=== PATIENT | female | born 1965 | race Caucasian/White ===

== ENCOUNTER 2017-07-06 16:34 | Observation (INO) | payer BC ==
--- NOTE | 2017-07-06 16:53 | EDPHY ---
H & P Stated Complaint: Generalized abd pain/bloating today;[place] Source: Patient Exam Limitations: No limitations - Personal History LMP (Females 10-55): Post Menopausal Current Tetanus Diphtheria and Acellular Pertussis (TDAP): Yes - Medical/Surgical History Other PMH: thyroid - Social History Smoking Status: Current every day smoker Time Seen by Provider: 07/06/17 16:52 HPI/ROS: HPI: This is a 52-year-old female who presents Chief Complaint: Generalized abd pain/bloating today;[place] Location: Generalized abdomen Quality: Cramping Duration: 1-2 days Signs and Symptoms: no fever, + nausea, + vomiting, no hematemesis, no blood in stool, + abdominal bloating, no diarrhea, no back pain, no urinary symptoms, no indigestion, no chest pain, no shortness of breath Timing: Intermittent, worsening Severity: Moderate Context: Patient is originally from [place] and arrived here to to visit her childhood friend on Tuesday. She reports that her last bowel movement was on the day that she flew. She has been eating foods that she normally does not eat but has been moving around more than normal. She reports over the last 1-2 days she has noticed increased abdominal bloating accompanied by nausea and abdominal cramping. Patient has no prior history of abdominal surgeries. Denies fever/chills/urinary symptoms/abdominal pain. Prior to her arrival to the ER she went to the pharmacy and they gave her a bottle Mag citrate to drink. After consuming the entire drink she felt nauseous and vomited up denies nausea or vomiting at the present moment. She reports that she is not passing flatus. She has had no difficulty eating or drinking. Modifying Factors: Robert lira Comment: ROS: see HPI Constitutional: No fever, no chills, no weight loss Eyes: No blurred vision Respiratory: No shortness of breath, no cough Cardiovascular: No chest pain, no palpitations Gastrointestinal: +nausea,+ vomiting, no diarrhea, no hematemesis, no blood in stool Genitourinary: No dysuria, no blood in urine Extremities: No myalgias, no edema Neurologic: No weakness, no numbness Skin: No rashes, no petechiae Hematologic: No bruising, no bleeding MEDICAL/SURGICAL/SOCIAL HISTORY: Medical history: Thyroid Surgical history: Denies Social history: Here visiting from [place] state CONSTITUTIONAL: Extremely well-appearing middle-aged white female, nontoxic in appearance, awake and alert, no obvious distress HEENT: Atraumatic and normocephalic, PERRL, EOMI. Tympanic membranes clear. Oropharynx clear, no exudate and moist pink mucosa. Airway patent. No lymphadenopathy. No meningismus. Cardiovascular: Normal S1/S2, regular rate, regular rhythm, without murmur rub or gallop. PULMONARY/CHEST: Symmetrical and nontender. Clear to auscultation bilaterally. Good air movement. No accessory muscle usage. ABDOMEN: Soft, mildly distended, non focal tenderness no rebound, no guarding, no peritoneal signs, no masses or organomegaly. No CVAT. Hyperactive bowel sounds heard x4 quadrants. EXTREMITIES: 2/2 pulses, strength 5/5, no deformities, no clubbing, no cyanosis or edema. NEUROLOGICAL: no focal neuro deficits. GCS 15. SKIN: Warm and dry, no erythema. no rash. Good capillary refill. (Evy Morgan) Constitutional: Initial Vital Signs Heart Rate 86 07/06/17 16:36 Respiratory Rate 18 07/06/17 16:36 Blood Pressure 155/85 H 07/06/17 16:36 O2 Sat (%) 96 07/06/17 16:36 O2 Delivery Mode Room Air Allergies/Adverse Reactions: No Known Allergies Allergy (Unverified 07/06/17 16:40) Home Medications: Medication Instructions Recorded ALPRAZolam [Xanax 1 MG (*)] 1 mg PO TID 07/06/17 Herbals/Supplements -Info Only 1 ea PO DAILY 07/06/17 Levothyroxine Sodium [Levoxyl] 150 mcg PO DAILY06 07/06/17 Multivitamins [Multivitamin (*)] 1 each PO DAILY 07/06/17 Medical Decision Making - Diagnostics Imaging Results: Imaging Impressions Abdomen X-Ray 07/06/17 17:08 Impression: Abnormal small bowel, with edematous loops in the left abdomen and either Pepto-Bismol or psammomatous calcifications in the pelvis. Recommend CT of the abdomen and pelvis with contrast for further evaluation. Results discussed with Evy Morgan at 5:[address] 07/06/17 17:35 Impression: 1. Suspicious of appendicitis. 2. Mild dilatation of duodenum and jejunum. I telephoned results to Evy Morgan PA-C and 1923 hours. ED Course/Re-evaluation: 1944: I did see and evaluate this patient. She does have right lower quadrant tenderness on exam. Given her white count right lower quadrant tenderness nausea ongoing abdominal pain her CT scan does show acute appendicitis. Surgery will be consult. I will order her Invanz, Dilaudid and Zofran at this time. NPO. (Samir Rainey) Labs, abdominal x-ray series, IV fluids, IV medications ordered Patient is a for from lot and nontoxic in appearance. She has not had a bowel movement in several days and suspect constipation. [address] Wheatley who advised abdominal x-ray shows edematous looking bowels as well as a calcification his recommendation is to proceed with CT abdomen and pelvis scan Urinalysis shows blood but no signs of infection 1831 Labs reviewed and showed mild leukocytosis of 12 K otherwise no signs of a YOLANDA, electrolyte imbalance, elevated LFTs, anemia, pancreatitis 1929: Called by Dr. Brownlee who advised that CT abdomen and pelvis scan shows minimal left lower quadrant small bowel dilatation as well as enhancing wall in 8-[address] Rainey reassessed patient and now having RLQ moderate to severe pain and nausea IV Invanz, another 1 liter NS, IV Dilaudid ordered Will consult surgery, Dr. Solis, who kindly agrees to consult on patient and provide further care (Evy Morgan) Differential Diagnosis: Abdominal pain including but not limited to appendicitis, cholecystitis, gastritis and urinary tract infection. (Evy Morgan) - Data Points Laboratory Results: Laboratory Results 07/06/17 17:45 07/06/17 17:45 07/06/17 07/06/17 07/06/17 17:45 17:45 16:45 WBC 12.53 10^3/uL H 10^3/uL (3.80-9.50) RBC 4.72 10^6/uL 10^6/uL (4.18-5.33) Hgb 14.5 g/dL g/dL (12.6-16.3) Hct 41.3 % % (38.0-47.0) MCV 87.5 fL fL (81.5-99.8) MCH 30.7 pg pg (27.9-34.1) MCHC 35.1 g/dL g/dL (32.4-36.7) RDW 12.9 % % (11.5-15.2) Plt Count 279 10^3/uL 10^3/uL (150-400) MPV 9.4 fL fL (8.7-11.7) Neut % (Auto) 76.8 % H % (39.3-74.2) Lymph % (Auto) 13.7 % L % (15.0-45.0) [place] % (Auto) 6.9 % % (4.5-13.0) Eos % (Auto) 1.8 % % (0.6-7.6) Baso % (Auto) 0.6 % % (0.3-1.7) Nucleat RBC Rel Count 0.0 % % (0.0-0.2) Absolute Neuts (auto) 9.61 10^3/uL H 10^3/uL (1.70-6.50) Absolute Lymphs (auto) 1.72 10^3/uL 10^3/uL (1.00-3.00) Absolute Monos (auto) 0.87 10^3/uL H 10^3/uL (0.30-0.80) Absolute Eos (auto) 0.23 10^3/uL 10^3/uL (0.03-0.40) Absolute Basos (auto) 0.07 10^3/uL 10^3/uL (0.02-0.10) Absolute Nucleated RBC 0.00 10^3/uL 10^3/uL (0-0.01) Immature Gran % 0.2 % % (0.0-1.1) Immature Gran # 0.03 10^3/uL 10^3/uL (0.00-0.10) Sodium 143 mEq/L mEq/L (134-144) Potassium 3.7 mEq/L mEq/L (3.5-5.2) Chloride 102 mEq/L mEq/L (97-110) Carbon Dioxide 27 mEq/l mEq/l (22-31) Anion Gap 14 mEq/L mEq/L (8-16) BUN 14 mg/dL mg/dL (7-23) Creatinine 0.8 mg/dL mg/dL (0.6-1.0) Estimated GFR > 60 Glucose 88 mg/dL mg/dL (70-100) Calcium 10.0 mg/dL mg/dL (8.5-10.4) Total Bilirubin 0.5 mg/dL mg/dL (0.1-1.4) Conjugated Bilirubin 0.1 mg/dL mg/dL (0.0-0.5) Unconjugated Bilirubin 0.4 mg/dL mg/dL (0.0-1.1) AST 38 IU/L IU/L (14-46) ALT 88 IU/L H IU/L (9-52) Alkaline Phosphatase 112 IU/L IU/L (38-126) Total Protein 7.8 g/dL g/dL (6.3-8.2) Albumin 4.6 g/dL g/dL (3.5-5.0) Lipase 120 IU/L IU/L (23-300) Urine Color YELLOW Urine Appearance CLEAR Urine pH 5.0 (5.0-7.5) Ur Specific [place] 1.020 (1.002-1.030) Urine Protein NEGATIVE (NEGATIVE) Urine Ketones NEGATIVE (NEGATIVE) Urine Blood 1+ H (NEGATIVE) Urine Nitrate NEGATIVE (NEGATIVE) Urine Bilirubin NEGATIVE (NEGATIVE) Urine Urobilinogen NEGATIVE EU EU (0.2-1.0) Ur Leukocyte Esterase NEGATIVE (NEGATIVE) Urine RBC 25-50 /hpf H /hpf (0-3) Urine WBC 3-5 /hpf H /hpf (0-3) Ur Epithelial Cells NONE SEEN /lpf /lpf (NONE-1+) Urine Glucose NEGATIVE (NEGATIVE) Medications Given: Discontinued Medications Hydromorphone HCl (Dilaudid) 0.5 mg IVP EDNOW ONE Stop: 07/06/17 19:46 Last Admin: 07/06/17 19:55 Dose: 0.5 mg Sodium Chloride (Ns) 1,000 mls @ 0 mls/hr IV EDNOW ONE; Wide Open PRN Reason: Protocol Stop: 07/06/17 17:09 Last Admin: 07/06/17 17:35 Dose: 1,000 mls Ertapenem 1 gm/ Sodium (Chloride) 100 mls @ 200 mls/hr IV EDNOW ONE PRN Reason: Protocol Stop: 07/06/17 20:14 Last Admin: 07/06/17 20:18 Dose: 100 mls Sodium Chloride (Ns) 1,000 mls @ 0 mls/hr IV ONCE ONE PRN Reason: Wide Open Stop: 07/06/17 19:47 Last Admin: 07/06/17 19:54 Dose: 1,000 mls Morphine Sulfate (Morphine) 6 mg IVP EDNOW ONE Stop: 07/06/17 18:32 Last Admin: 07/06/17 18:37 Dose: 6 mg Ondansetron HCl (Zofran) 4 mg IVP EDNOW ONE Stop: 07/06/17 17:09 Last Admin: 07/06/17 17:36 Dose: 4 mg Departure - Departure Disposition: [facility] Inpatient Acute Clinical Impression: Appendicitis Qualifiers: Appendicitis type: acute appendicitis Acute appendicitis type: with generalized peritonitis Qualified Code(s): K35.2 - Acute appendicitis with generalized peritonitis
[2017-07-06] MEDS ORDERED: ONDANSETRON 4 MG/2 ML VIAL IVP ONE (17:08)
[2017-07-06] MEDS ORDERED: NS 1,000 ML IV ONE ×2 (17:08→19:46)
[2017-07-06 17:27] LABS: COLOR YELLOW; LEUKOCYTE ESTERASE,URINE NEGATIVE (NEGATIVE); NITRITE,URINE NEGATIVE (NEGATIVE)
[2017-07-06 17:35] LABS: RBC,URINE 25-50 /hpf (0-3)
[2017-07-06 17:50] LABS: % IMMATURE GRANULYOCYTES 0.2 % (0.0-1.1); ABSOLUTE IMMATURE GRANULOCYTES 0.03 10^3/uL (0.00-0.10); ADD DIFF? NO; ADD MORPH? NO; ADD SCAN? NO; ATYPICAL LYMPHOCYTE FLAG 0 (0-99); FRAGMENT RBC FLAG 0 (0-99); HEMATOCRIT 41.3 % (38.0-47.0); HEMOGLOBIN 14.5 g/dL (12.6-16.3); LEFT SHIFT FLG 0 (0-99); LIPEMIA HEMOLYSIS FLAG 90 (0-99); MEAN CELL HEMOGLOBIN 30.7 pg (27.9-34.1); MEAN CELL HEMOGLOBIN CONCENTR. 35.1 g/dL (32.4-36.7); MEAN CELL VOLUME 87.5 fL (81.5-99.8); MEAN PLATELET VOLUME 9.4 fL (8.7-11.7); PLATELET CLUMPS FLAG 0 (0-99); PLATELET COUNT 279 10^3/uL (150-400); RED BLOOD CELL COUNT 4.72 10^6/uL (4.18-5.33); RED CELL DISTRIBUTION WIDTH 12.9 % (11.5-15.2)
[2017-07-06 18:12] LABS: ALANINE AMINOTRANSFERASE 88 IU/L (9-52); ALBUMIN 4.6 g/dL (3.5-5.0); ALKALINE PHOSPHATASE 112 IU/L (38-126); ANION GAP 14 mEq/L (8-16); ASPARTATE AMINOTRANSFERASE 38 IU/L (14-46); BILIRUBIN,TOTAL 0.5 mg/dL (0.1-1.4); BILIRUBIN-CONJUGATED 0.1 mg/dL (0.0-0.5); BILIRUBIN-UNCONJUGATED 0.4 mg/dL (0.0-1.1); CARBON DIOXIDE 27 mEq/l (22-31); CHLORIDE 102 mEq/L (97-110); CREATININE 0.8 mg/dL (0.6-1.0); GLOMERULAR FILTRATION RATE > 60; GLUCOSE 88 mg/dL (70-100); POTASSIUM 3.7 mEq/L (3.5-5.2); SODIUM 143 mEq/L (134-144); TOTAL PROTEIN 7.8 g/dL (6.3-8.2)
[2017-07-06] MEDS ORDERED: IOPAMIDOL (ISOVUE-300) 100 ML BTL ONE (18:32)
[2017-07-06] MEDS ORDERED: HYDROmorphONE/DILAUDID 1 MG/ML INJ IVP ONE (19:45)
[2017-07-06] MEDS ORDERED: ERTAPENEM 1 GM in NS 100 ML IV ONE (19:45)
[2017-07-06] MEDS ORDERED: LORazepam 2 MG/ML INJ IVP ONE (20:38)
[2017-07-06] MEDS ORDERED: HYDROmorphONE/DILAUDID 1 MG/ML INJ IVP PRN ×2 (20:40→21:06)
[2017-07-06] MEDS ORDERED: LR 1,000 ML IV ONE (20:43)
[2017-07-06] MEDS ORDERED: BUPIVACAINE 0.25% 30 ML SDV ONE (20:44)
--- NOTE | 2017-07-06 20:51 | PDGENHP ---
History and Physical - Chief Complaint abd pain - History of Present Illness 52 y/o female with abdominal pain starting today associated with N/V. She has been mildly constipated for the past 2 days while visiting from [place] and took some Pepto Bismol and Mag Citrate to try and relieve her symptoms. She felt worse and went to urgent care and ultimately to the [facility] ED where she was seen by MARY LOU Morgan and a CT was obtained which showed acute appendicitis. Surgical consultation was requested. History Information - Allergies/Home Medication List Allergies/Adverse Reactions: No Known Allergies Allergy (Unverified 07/06/17 16:40) Home Medications: ALPRAZolam [Xanax 1 MG (*)] 1 mg PO TID 07/06/17 [Last Taken 07/06/17 08:00] Herbals/Supplements -Info Only 1 ea PO DAILY 07/06/17 [Last Taken 07/06/17] Levothyroxine Sodium [Levoxyl] 150 mcg PO DAILY06 07/06/17 [Last Taken 07/06/17] Multivitamins [Multivitamin (*)] 1 each PO DAILY 07/06/17 [Last Taken 07/06/17] I have personally reviewed and updated: family history, medical history, social history, surgical history - Past Medical History Additional medical history: anxiety, hypothyroidism - Surgical History Additional surgical history: breast augmentation/liposuction - Social History Smoking Status: Current every day smoker Alcohol Use: Occasionally Drug Use: None Additional social history: lives in [place]/here with a friend from [place]/ has a flight back home tomorrow at 12:00 Review of Systems Review of Systems: Constitutional: Reports: no symptoms EENMT: Reports: no symptoms Cardiac: Reports: no symptoms Respiratory: Reports: no symptoms Gastrointestinal: Reports: vomitting, abdominal pain, abdominal distention, constipation, nausea Genitourinary: Reports: no symptoms, other (post menopausal) Muscolosketal: Reports: no symptoms Skin: Reports: no symptoms Neurological: Reports: anxiety Hematologic/Lymphatic: Reports: no symptoms Immunologic/Allergy: Reports: no symptoms Physical Exam Physical Exam: Temp Pulse Resp BP Pulse Ox 36.9 C 76 16 113/53 L 93 07/06/17 20:00 07/06/17 20:00 07/06/17 20:00 07/06/17 20:00 07/06/17 20:00 Constitutional: uncomfortable Eyes: anicteric sclera, EOMI Cardiovascular: regular rate and rhythym Respiratory: no respiratory distress, no rales or rhonchi, clear to auscultation Gastrointestinal: normoactive bowel sounds, tenderness (diffuse lower abd tenderness to percussion/palpation/+Rovsing's/mild guarding RLQ/no mass) Genitourinary: no bladder fullness Skin: warm Neurologic: AAOx3 Psychiatric: interacting appropriately, anxious Lymph, Heme, Immunologic: no cervical LAD, no supraclavicular LAD Lab Data & Imaging Review 07/06/17 17:45 07/06/17 17:45 WBC 12.53 10^3/uL (3.80-9.50) H 07/06/17 17:45 RBC 4.72 10^6/uL (4.18-5.33) 07/06/17 17:45 Hgb 14.5 g/dL (12.6-16.3) 07/06/17 17:45 Hct 41.3 % (38.0-47.0) 07/06/17 17:45 MCV 87.5 fL (81.5-99.8) 07/06/17 17:45 MCH 30.7 pg (27.9-34.1) 07/06/17 17:45 MCHC 35.1 g/dL (32.4-36.7) 07/06/17 17:45 RDW 12.9 % (11.5-15.2) 07/06/17 17:45 Plt Count 279 10^3/uL (150-400) 07/06/17 17:45 MPV 9.4 fL (8.7-11.7) 07/06/17 17:45 Neut % (Auto) 76.8 % (39.3-74.2) H 07/06/17 17:45 Lymph % (Auto) 13.7 % (15.0-45.0) L 07/06/17 17:45 Jerome % (Auto) 6.9 % (4.5-13.0) 07/06/17 17:45 Eos % (Auto) 1.8 % (0.6-7.6) 07/06/17 17:45 Baso % (Auto) 0.6 % (0.3-1.7) 07/06/17 17:45 Nucleat RBC Rel Count 0.0 % (0.0-0.2) 07/06/17 17:45 Absolute Neuts (auto) 9.61 10^3/uL (1.70-6.50) H 07/06/17 17:45 Absolute Lymphs (auto) 1.72 10^3/uL (1.00-3.00) 07/06/17 17:45 Absolute Monos (auto) 0.87 10^3/uL (0.30-0.80) H 07/06/17 17:45 Absolute Eos (auto) 0.23 10^3/uL (0.03-0.40) 07/06/17 17:45 Absolute Basos (auto) 0.07 10^3/uL (0.02-0.10) 07/06/17 17:45 Absolute Nucleated RBC 0.00 10^3/uL (0-0.01) 07/06/17 17:45 Immature Gran % 0.2 % (0.0-1.1) 07/06/17 17:45 Immature Gran # 0.03 10^3/uL (0.00-0.10) 07/06/17 17:45 Sodium 143 mEq/L (134-144) 07/06/17 17:45 Potassium 3.7 mEq/L (3.5-5.2) 07/06/17 17:45 Chloride 102 mEq/L (97-110) 07/06/17 17:45 Carbon Dioxide 27 mEq/l (22-31) 07/06/17 17:45 Anion Gap 14 mEq/L (8-16) 07/06/17 17:45 BUN 14 mg/dL (7-23) 07/06/17 17:45 Creatinine 0.8 mg/dL (0.6-1.0) 07/06/17 17:45 Estimated GFR > 60 07/06/17 17:45 Glucose 88 mg/dL (70-100) 07/06/17 17:45 Calcium 10.0 mg/dL (8.5-10.4) 07/06/17 17:45 Total Bilirubin 0.5 mg/dL (0.1-1.4) 07/06/17 17:45 Conjugated Bilirubin 0.1 mg/dL (0.0-0.5) 07/06/17 17:45 Unconjugated Bilirubin 0.4 mg/dL (0.0-1.1) 07/06/17 17:45 AST 38 IU/L (14-46) 07/06/17 17:45 ALT 88 IU/L (9-52) H 07/06/17 17:45 Alkaline Phosphatase 112 IU/L (38-126) 07/06/17 17:45 Total Protein 7.8 g/dL (6.3-8.2) 07/06/17 17:45 Albumin 4.6 g/dL (3.5-5.0) 07/06/17 17:45 Lipase 120 IU/L (23-300) 07/06/17 17:45 Urine Color YELLOW 07/06/17 16:45 Urine Appearance CLEAR 07/06/17 16:45 Urine pH 5.0 (5.0-7.5) 07/06/17 16:45 Ur Specific [place] 1.020 (1.002-1.030) 07/06/17 16:45 Urine Protein NEGATIVE (NEGATIVE) 07/06/17 16:45 Urine Ketones NEGATIVE (NEGATIVE) 07/06/17 16:45 Urine Blood 1+ (NEGATIVE) H 07/06/17 16:45 Urine Nitrate NEGATIVE (NEGATIVE) 07/06/17 16:45 Urine Bilirubin NEGATIVE (NEGATIVE) 07/06/17 16:45 Urine Urobilinogen NEGATIVE EU (0.2-1.0) 07/06/17 16:45 Ur Leukocyte Esterase NEGATIVE (NEGATIVE) 07/06/17 16:45 Urine RBC 25-50 /hpf (0-3) H 07/06/17 16:45 Urine WBC 3-5 /hpf (0-3) H 07/06/17 16:45 Ur Epithelial Cells NONE SEEN /lpf (NONE-1+) 07/06/17 16:45 Urine Glucose NEGATIVE (NEGATIVE) 07/06/17 16:45 Visualized and Interpreted imaging results: Yes Interpretation: mild appendicieal dilatation with wall enhancement c/w acute appendicitis. minimal fat stranding/no free air or abscess Assessment & Plan Assessment: Appendicitis (Acute) tobacco use, chronic anxiety disorder hematuria unclear etiology, possibly related to appendicitis mild elevation transaminase unclear etiology Plan: lap appendectomy discussed including risks and expected recovery. Informed consent was obtained She has received 1 gm Invanz and will not receive additional abx unless ruptured. I anticipate she will be able to travel with assistance tomorrow and will recommend [facility] Lovenox after surgery and before her flight. FU with her PCP to repeat LFTs and UA next week.
[2017-07-06] MEDS ORDERED: ACETAMINOPHEN 500 MG TAB PO PRN (21:06)
[2017-07-06] MEDS ORDERED: LR 500 ML IV PRN (21:06)
[2017-07-06] MEDS ORDERED: HYDROCODONE/APAP 5/325 TAB PO PRN (21:06)
[2017-07-06] MEDS ORDERED: DEXAMETHASONE 4 MG/ML VIAL IVP PRN (21:06)
[2017-07-06] MEDS ORDERED: NALOXONE HCL 0.4 MG/ML INJ IVP PRN (21:06)
[2017-07-06] MEDS ORDERED: ONDANSETRON 4 MG/2 ML VIAL IVP PRN ×2 (21:06→22:34)
--- NOTE | 2017-07-06 21:09 | PDANEPAE ---
ANE History of Present Illness Lap Appy ELIZABETH Past Medical History - Cardiovascular History Hx Hypertension: No Hx Arrhythmias: No - Pulmonary History Hx COPD: No Hx Asthma/Reactive Airway Disease: No Hx Sleep Apnea: No ANE Review of Systems Review of Systems: ANE Patient History - Allergies Allergies/Adverse Reactions: No Known Allergies Allergy (Unverified 07/06/17 16:40) - Home Medications Home Medications: ALPRAZolam [Xanax 1 MG (*)] 1 mg PO TID 07/06/17 [Last Taken 07/06/17 08:00] Herbals/Supplements -Info Only 1 ea PO DAILY 07/06/17 [Last Taken 07/06/17] Levothyroxine Sodium [Levoxyl] 150 mcg PO DAILY06 07/06/17 [Last Taken 07/06/17] Multivitamins [Multivitamin (*)] 1 each PO DAILY 07/06/17 [Last Taken 07/06/17] - NPO status NPO Since - Liquids (Date): 07/06/17 NPO Since - Liquids (Time): 14:00 NPO Since - Solids (Date): 07/06/17 NPO Since - Solids (Time): 11:00 - Smoking Hx Smoking Status: Current every day smoker - Alcohol Use Alcohol Use: Occasionally ANE Labs/Vital Signs - Labs Result Diagrams: 07/06/17 17:45 07/06/17 17:45 - Vital Signs Blood Pressure: 113/53 Heart Rate: 76 Respiratory Rate: 16 O2 Sat (%): 93 Height: 165.1 cm Weight: 68.039 kg ANE Physical Exam - Airway Neck exam: FROM Mallampati Score: Class 2 Mouth exam: normal dental/mouth exam - Pulmonary Pulmonary: clear to auscultation - Cardiovascular Cardiovascular: regular rate and rhythym - ASA Status ASA Status: I, E ANE Anesthesia Plan Anesthesia Plan: general endotracheal anesthesia
[2017-07-06] MEDS ORDERED: PROPOFOL 200 MG/20 ML VIAL ONE (21:12)
[2017-07-06] MEDS ORDERED: fentaNYL 250 MCG/5 ML INJ ONE (21:12)
[2017-07-06] MEDS ORDERED: METOCLOPRAMIDE 10 MG/2 ML VIAL ONE (21:14)
[2017-07-06] MEDS ORDERED: DEXAMETHASONE 4 MG/ML VIAL ONE ×2 (21:14)
[2017-07-06] MEDS ORDERED: ONDANSETRON 4 MG/2 ML VIAL ONE (21:14)
[2017-07-06] MEDS ORDERED: PHENYLEPHRINE HCL 100 MCG/ML SYR ONE (21:43)
[2017-07-06] MEDS ORDERED: SUGAMMADEX SODIUM 200 MG/2 ML VIAL IVP ONE (22:12)
--- NOTE | 2017-07-06 22:32 | POSTOPPROG ---
Post Op Note Date of Operation: 07/06/17 Surgeon: Samir Solis (, FACS) Anesthesiologist: Alverto Neil DO Anesthesia: GET(General Endotracheal) Pre-op Diagnosis: appendicitis Post-op Diagnosis: same Procedure: lap appendectomy Inf/Abcess present in the surg proc area at time of surgery?: Yes Depth: Organ Space EBL: Minimal
--- NOTE | 2017-07-06 22:33 | POSTANESTH ---
Post Anesthetic Evaluation Cardiovascular Status: Normal, Stable Respiratory Status: Normal, Stable Level of Consciousness/Mental Status: Can Participate in Eval, Alert and Oriented Pain Control: Adequate, Prn Tx Ordered Nausea/Vomiting Control: Adequate, Prn Tx Ordered Complications Possibly Related to Anesthesia: None Noted
[2017-07-06] MEDS ORDERED: OXYCODONE/APAP 5/325 TAB PO PRN (22:34)
[2017-07-06] MEDS ORDERED: PROMETHAZINE HCL 25 MG/ML INJ IVP PRN (22:34)
[2017-07-06] MEDS ORDERED: ALBUTEROL 3 ML DEYVIAL IH PRN (22:40)
[2017-07-06] MEDS: ALBUTEROL 3 ML DEYVIAL IH PRN ×2 (22:41→22:53)
[2017-07-06] MEDS ORDERED: ALBUTEROL 3 ML DEYVIAL ONE ×2 (22:41→22:52)
[2017-07-06] MEDS ORDERED: D5W 1/2 NS 1,000 ML IV SCH (22:45)
[2017-07-06] MEDS ORDERED: fentaNYL 100 MCG/2 ML INJ ONE (22:58)
[2017-07-06] MEDS: fentaNYL 100 MCG/2 ML INJ IVP PRN ×3 (23:00→23:26)
[2017-07-07] MEDS: ALPRAZolam 1 MG TAB PO SCH ×2 (00:05→07:56)
[2017-07-07 03:04] VITALS: TEMP 98
[2017-07-07 04:37] VITALS: BP 103/62; PULSE 85; RESP 18; O2SAT 96
[2017-07-07] MEDS ORDERED: LEVOTHYROXINE 150 MCG TAB PO SCH (06:00)
--- NOTE | 2017-07-07 06:58 | PDDCSUM ---
Discharge Summary Discharge Summary: DOA 07/06/17 DOD 07/07/17 DC Dx: acute appendicitis microhematuria elevated transaminases tobacco use Rx: lap appendectomy 07/06/17 DC meds: Percocet 5/325 1-2 po q 4 hr prn #30 Senokot-S 1 po BID Lovenox 40 mg SC q Day x 7 Course: Elsie presented with acute appendicitis and underwent lap appendectomy after receiving one gram Invanz. Post op she had mild broncospasm in the PACU treated with albuterol nebs. She othewise recovered uneventfully and was discharged the following morning to return to [place]. I recommended VTE prophylaxis with lovenox x 7 days. She will follow up with her PCP to recheck a UA and LFTs. condition at time of discharge improved Roscoe Solis MD, FACS
[2017-07-07] MEDS ORDERED: ENOXAPARIN 40 MG/0.4 ML SYR SC SCH (09:00)
--- NOTE | 2017-07-07 09:26 | GOP ---
[f rep st] OPERATIVE REPORT DATE OF OPERATION: SURGEON: Samir Solis MD, FACS ANESTHESIA: General endotracheal. ANESTHESIOLOGIST: Alverto Neil DO. PREOPERATIVE DIAGNOSIS: Acute appendicitis. POSTOPERATIVE DIAGNOSIS: Acute appendicitis. PROCEDURE PERFORMED: Laparoscopic appendectomy. FINDINGS: Acute appendicitis without perforation or gangrene. Evidence of prior right salpingectomy. ESTIMATED BLOOD LOSS: 5 mL. DESCRIPTION OF PROCEDURE: After informed consent was obtained, the patient was brought to the operating room and placed under general anesthesia. The abdomen was prepped and draped in the usual fashion. Before proceeding, a time-out and identification of the patient was performed. A prior laparoscopic port incision had been placed at the base of the umbilicus. The skin here was infiltrated with 0.25% Marcaine, reincised and dissection carried out down to the midline fascia. Ventral traction was applied to the abdominal wall with a penetrating towel clamp. A Veress needle was introduced and position confirmed by saline infusion. A pneumoperitoneum was established with CO2 gas to a pressure of 15 mmHg. The Veress needle was withdrawn and replaced with a 5 mm trocar. The 30 degree 5 mm scope was introduced and the peritoneal cavity was visualized. There were no significant anterior abdominal wall adhesions. A second 5 mm port was placed in the suprapubic midline and a 12 mm port was placed in the left lower quadrant. This allowed introduction of atraumatic grasping forceps. The appendix was mobilized somewhat posterior to the cecum and lateral to the terminal ilium. The mesoappendix was dispatched with a Harmonic scalpel and the appendix from the cecum with a single firing of the MIMI stapler. This was retrieved through the left lower quadrant port site with an Endopouch and submitted for permanent section. The table was then positioned in Trendelenburg. The bowel was brought out of the pelvis. The ovaries were inspected bilaterally and appeared unremarkable. A staple line across the base of the salpinx on the right side was evidence of her prior surgery. The uterus appeared normal. There may have been some old endometriosis on the surface of the left ovary. The operative field appeared hemostatic. The left lower quadrant port site was closed with a transfascial closure needle and 0 Vicryl suture. The pneumoperitoneum was evacuated. The remaining ports were removed. The subcutaneous tissues were approximated with 3-0 Monocryl suture and the skin was closed with 4-0 Monocryl suture in a subcuticular fashion. Topical Dermabond was applied. Patient was returned extubated to the recovery room in satisfactory condition. Needle, sponge, and instrument count were correct. COMPLICATIONS: None. /[id number]/MODL MTDD
--- NOTE | 2017-07-07 10:02 | ASDISCHSUM ---
Discharge Information Plan Status: Medically Cleared to Leave: Discharge Date:07/07/2017 09:00 AM CM D/C Disposition: ADT D/C Disposition:Home, Routine, Self-Care Projected Discharge Date:07/07/2017 09:00 AM Transportation at D/C: Discharge Delay Reason: Follow-Up Date:07/07/2017 09:00 AM Discharge Slot: Final Diagnosis: Placement Information Patient Contact Information Contact Name:MILAGRO Relationship:Joelle Address: Work Phone: City:[place] [facility] Phone: [facility] Internet Code:INGRID Email: Financial Information Financial Class:HMO and PPO Plans Primary Plan Desc: OUT OF STATE PPO Primary Plan Number:[id number] Secondary Plan Desc: Secondary Plan Number: Assessment Information Intervention Information
== END 2017-07-07 09:00 | disposition home or self-care (01) ==
LOC: F1N 23:36
PROVIDERS: ADMIT Surgery; ATTEND Surgery
PROC: 0DTJ4ZZ Resection of Appendix, Percutaneous Endoscopic Approach (ICD-10-PCS; principal; 2017-07-06 21:00)
DX: K35.80 Unspecified acute appendicitis (principal); J98.01 Acute bronchospasm; R31.21 Asymptomatic microscopic hematuria; R74.0 Nonspecific elevation of levels of transaminase and lactic acid dehydrogenase [LDH]; F17.210 Nicotine dependence, cigarettes, uncomplicated
CPT/HCPCS: 44970; 74022; 74177; G0378; 96365; J1100; J1170; J1335; J1650; J2370; J2405; J2704; J2765; J3010; Q9967